=== PATIENT | female | born 1985 | race Caucasian/White ===

== ENCOUNTER 2017-05-14 09:14 | Inpatient (IN) | payer MEDICAID ==
[2017-05-14] MEDS: LACTATED RINGER'S 1,000 ML IV ×3 (11:19→19:50)
[2017-05-14 11:59] LABS: RUPTURE FETAL MEMBRANES POSITIVE (NEGATIVE)
[2017-05-14] MEDS ORDERED: IBUPROFEN 600 MG TAB PO (13:30)
[2017-05-14] MEDS ORDERED: CARBOPROST 250 MCG INJ IM (13:30)
[2017-05-14] MEDS ORDERED: OXYTOCIN 30 UNITS/LR 500 ML IV (13:30)
[2017-05-14] MEDS ORDERED: METHYLERGONOVINE 0.2 MG INJ IM (13:30)
[2017-05-14] MEDS ORDERED: MISOPROSTOL 200 MCG TAB PR (13:30)
[2017-05-14] MEDS ORDERED: LIDOCAINE 1% (MPF) 30 ML INJ INJ (13:30)
[2017-05-14 15:05] LABS: ADD MAN DIFF? NO
[2017-05-14 15:11] LABS: WHITE BLOOD COUNT 9.5 10^3/ul (4.8-10.8)
[2017-05-14 15:11] LABS: BASOPHILS % 0.2 % (0.0-2.0); EOSINOPHILS # 0.1 10^3/ul (0.0-0.5); EOSINOPHILS % 0.5 % (0.0-7.0); HEMATOCRIT 40.1 % (37.0-47.0); HEMOGLOBIN 13.8 g/dl (12.0-16.0); LYMPHOCYTES # 1.6 10^3/ul (0.8-2.9); LYMPHOCYTES % 17.1 % (15.0-51.0); MEAN CORPUSCULAR HEMOGLOBIN 30.7 pg (29.0-33.0); MEAN CORPUSCULAR HGB CONC 34.4 g/dl (32.0-37.0); MEAN CORPUSCULAR VOLUME 89.1 fl (82.0-101.0); MEAN PLATELET VOLUME 11.7 fl (7.4-10.4); MONOCYTE # 0.6 10^3/ul (0.3-0.9); MONOCYTES % 6.3 % (0.0-11.0); NEUTROPHIL # 7.1 10^3/ul (1.6-7.5); NEUTROPHILS % 75.3 % (39.0-77.0); PLATELET COUNT 212 10^3/UL (140-415); RED CELL DISTRIBUTION WIDTH 13.7 % (11.5-14.5)
[2017-05-14 15:35] LABS: INR 0.91; PROTIME 12.3 Sec (11.9-14.9)
[2017-05-14 15:36] LABS: PARTIAL THROMBOPLASTIN TIME 26.8 Sec (25.0-35.0)
[2017-05-14] MEDS: LACTATED RINGER'S 250 ML IV (17:02)
[2017-05-14] MEDS ORDERED: FENTAnyl 2MCG/ML-ROPIV 0.2% 100 ML (20:07)
[2017-05-14 20:29] LABS: HEPATITIS B SURFACE ANTIGEN NEGATIVE (NEGATIVE)
[2017-05-14] MEDS ORDERED: NALOXONE (0.4 MG/ML) INJ IV (21:00)
[2017-05-14] MEDS: OXYTOCIN 30 UNITS/LR 500 ML IV (21:23)
[2017-05-14 22:41] LABS: RAPID PLASMA REAGIN NONREACTIVE (NR)
[2017-05-15] MEDS: LACTATED RINGER'S 1,000 ML IV ×7 (00:43→22:38)
[2017-05-15] MEDS: FENTAnyl 2MCG/ML-ROPIV 0.2% 100 ML BAG EPI ×3 (03:46→17:15)
[2017-05-15] MEDS ORDERED: AMPICILLIN 2 GM/NS (PMX) 100 ML (07:21)
[2017-05-15] MEDS: AMPICILLIN 2 GM/NS (PMX) 100 ML IV (07:24)
[2017-05-15] MEDS: AMPICILLIN 1 GM/NS (PMX) 50 ML IV ×4 (11:11→23:11)
[2017-05-15] MEDS: OXYTOCIN 30 UNITS/LR 500 ML IV (15:43)
[2017-05-16] MEDS: OXYTOCIN 30 UNITS/LR 500 ML IV ×6 (00:30→18:27)
[2017-05-16] MEDS: MINERAL OIL LIGHT 10 ML VIAL TOP ×2 (02:22)
[2017-05-16] MEDS: CEFAZOLIN 2 GM/50 ML (PMX) 50 ML IVPB ×3 (02:30→23:47)
[2017-05-16] MEDS ORDERED: morphine SULFATE/PF (10 MG/10 ML) INJ (02:54)
[2017-05-16] MEDS ORDERED: OXYTOCIN 10 UNIT INJ ×2 (02:54→03:31)
[2017-05-16] MEDS ORDERED: METOCLOPRAMIDE 10 MG INJ (02:54)
[2017-05-16] MEDS ORDERED: OXYTOCIN 30 UNITS/LR 500 ML IV ×2 (02:54→08:00)
[2017-05-16] MEDS ORDERED: EPHEDrine SULFATE 50 MG/5 ML SYG (02:54)
[2017-05-16] MEDS ORDERED: ONDANSETRON 4 MG INJ (02:54)
[2017-05-16] MEDS ORDERED: LIDOCAINE 1.5%/EPI MPF (SDV) 30 ML VIAL (02:55)
[2017-05-16] MEDS: LACTATED RINGER'S 1,000 ML IV ×5 (03:00→22:23)
[2017-05-16] MEDS: AMPICILLIN 1 GM/NS (PMX) 50 ML IV (03:30)
[2017-05-16] MEDS ORDERED: ONDANSETRON 4 MG INJ IV ×2 (06:30→08:00)
[2017-05-16] MEDS ORDERED: DIPHENHYDRAMINE 50 MG INJ IV ×2 (06:30→08:00)
[2017-05-16] MEDS ORDERED: NALOXONE (0.4 MG/ML) INJ IV (06:30)
[2017-05-16] MEDS ORDERED: morphine 2 MG INJ IV ×2 (06:30)
[2017-05-16] MEDS: morphine SULFATE/PF (10 MG/10 ML) INJ EPI (06:33)
[2017-05-16] MEDS: KETOROLAC 30 MG INJ IV ×3 (07:09→18:19)
[2017-05-16] MEDS ORDERED: METHYLERGONOVINE 0.2 MG INJ IM (08:00)
[2017-05-16] MEDS ORDERED: CARBOPROST 250 MCG INJ IM (08:00)
[2017-05-16] MEDS ORDERED: MISOPROSTOL 200 MCG TAB PR (08:00)
[2017-05-16] MEDS ORDERED: OXYCODONE/ACETAMINOPHEN (5/325) TAB PO (08:00)
[2017-05-16] MEDS ORDERED: ZOLPIDEM 5 MG TAB PO (08:00)
[2017-05-16] MEDS ORDERED: LANOLIN 7 GM TUBE TOP (08:00)
[2017-05-16] MEDS: SENNA/DOCUSATE NA (8.6MG/50MG) TAB PO ×2 (09:34→20:40)
[2017-05-16] MEDS: CLINDAMYCIN 300 MG CAP PO ×2 (18:23→23:46)
[2017-05-16] MEDS ORDERED: MAGNESIUM HYDROXIDE 30ML CUP PO (18:30)
[2017-05-16] MEDS ORDERED: SENNA TAB PO (18:30)
[2017-05-17] MEDS: KETOROLAC 30 MG INJ IV (04:30)
[2017-05-17] MEDS: CEFAZOLIN 2 GM/50 ML (PMX) 50 ML IVPB ×2 (05:32→11:51)
[2017-05-17] MEDS: CLINDAMYCIN 300 MG CAP PO ×2 (05:32→11:51)
[2017-05-17] MEDS: IBUPROFEN 600 MG TAB PO ×4 (06:00→23:41)
[2017-05-17] MEDS: OXYCODONE/ACETAMINOPHEN (5/325) TAB PO (09:43)
[2017-05-17] MEDS: SENNA/DOCUSATE NA (8.6MG/50MG) TAB PO ×2 (09:43→21:17)
[2017-05-17 10:19] LABS: ADD MAN DIFF? NO
[2017-05-17 10:22] LABS: WHITE BLOOD COUNT 17.5 10^3/ul (4.8-10.8)
[2017-05-17 10:22] LABS: BASOPHIL # 0.1 10^3/ul (0.0-0.1); BASOPHILS % 0.3 % (0.0-2.0); EOSINOPHILS % 0.2 % (0.0-7.0); HEMATOCRIT 29.5 % (37.0-47.0); HEMOGLOBIN 10.3 g/dl (12.0-16.0); LYMPHOCYTES # 1.1 10^3/ul (0.8-2.9); LYMPHOCYTES % 6.1 % (15.0-51.0); MEAN CORPUSCULAR HEMOGLOBIN 31.4 pg (29.0-33.0); MEAN CORPUSCULAR HGB CONC 34.9 g/dl (32.0-37.0); MEAN CORPUSCULAR VOLUME 89.9 fl (82.0-101.0); MEAN PLATELET VOLUME 11.9 fl (7.4-10.4); MONOCYTE # 0.6 10^3/ul (0.3-0.9); MONOCYTES % 3.2 % (0.0-11.0); NEUTROPHIL # 15.6 10^3/ul (1.6-7.5); NEUTROPHILS % 89.2 % (39.0-77.0); PLATELET COUNT 172 10^3/UL (140-415); RED BLOOD COUNT 3.28 10^6/ul (4.20-5.40); RED CELL DISTRIBUTION WIDTH 13.9 % (11.5-14.5)
[2017-05-17] MEDS: LACTATED RINGER'S 1,000 ML IV ×2 (15:53→18:15)
[2017-05-17] MEDS: GENTAMICIN 80 MG/NS (PMX) 50 ML IVPB (17:30)
[2017-05-17] MEDS: CLINDAMYCIN 900 MG/D5W (PMX) 50 ML IVPB ×3 (18:00→23:41)
[2017-05-17] MEDS: AMPICILLIN 2 GM/NS (PMX) 100 ML IVPB (19:03)
[2017-05-18] MEDS: AMPICILLIN 2 GM/NS (PMX) 100 ML IVPB ×4 (00:17→18:47)
[2017-05-18] MEDS: GENTAMICIN 80 MG/NS (PMX) 50 ML IVPB ×4 (01:21→18:25)
[2017-05-18] MEDS: CLINDAMYCIN 900 MG/D5W (PMX) 50 ML IVPB ×4 (05:17→23:35)
[2017-05-18] MEDS: IBUPROFEN 600 MG TAB PO ×4 (05:48→23:35)
[2017-05-18] MEDS: SENNA/DOCUSATE NA (8.6MG/50MG) TAB PO ×2 (09:35→21:35)
[2017-05-18 11:10] LABS: ADD MAN DIFF? NO
[2017-05-18 11:20] LABS: WHITE BLOOD COUNT 12.7 10^3/ul (4.8-10.8)
[2017-05-18 11:20] LABS: BASOPHILS % 0.3 % (0.0-2.0); EOSINOPHILS # 0.1 10^3/ul (0.0-0.5); EOSINOPHILS % 0.9 % (0.0-7.0); HEMATOCRIT 29.5 % (37.0-47.0); LYMPHOCYTES # 1.2 10^3/ul (0.8-2.9); LYMPHOCYTES % 9.1 % (15.0-51.0); MEAN CORPUSCULAR HEMOGLOBIN 30.8 pg (29.0-33.0); MEAN CORPUSCULAR HGB CONC 33.9 g/dl (32.0-37.0); MEAN CORPUSCULAR VOLUME 90.8 fl (82.0-101.0); MONOCYTE # 0.5 10^3/ul (0.3-0.9); MONOCYTES % 4.1 % (0.0-11.0); NEUTROPHIL # 10.8 10^3/ul (1.6-7.5); NEUTROPHILS % 84.9 % (39.0-77.0); PLATELET COUNT 217 10^3/UL (140-415); RED BLOOD COUNT 3.25 10^6/ul (4.20-5.40); RED CELL DISTRIBUTION WIDTH 13.7 % (11.5-14.5)
[2017-05-18] MEDS: OXYCODONE/ACETAMINOPHEN (5/325) TAB PO (14:00)
[2017-05-18] MEDS ORDERED: MAGNESIUM HYDROXIDE 30ML CUP PO (16:30)
[2017-05-18] MEDS ORDERED: SENNA TAB PO (16:30)
[2017-05-18] MEDS: BISACODYL 10 MG SUPP PR (16:53)
[2017-05-19] MEDS: AMPICILLIN 2 GM/NS (PMX) 100 ML IVPB ×3 (00:12→12:50)
[2017-05-19] MEDS: GENTAMICIN 80 MG/NS (PMX) 50 ML IVPB ×2 (01:22→10:24)
[2017-05-19] MEDS: CLINDAMYCIN 900 MG/D5W (PMX) 50 ML IVPB ×2 (05:43→13:40)
[2017-05-19] MEDS: IBUPROFEN 600 MG TAB PO ×2 (05:43→12:50)
[2017-05-19 08:57] LABS: ADD MAN DIFF? NO
[2017-05-19] MEDS ORDERED: DIPHTH/TET/ACEL PERTUSS (ADULT) 0.5 ML VIAL IM* (09:00)
[2017-05-19 09:02] LABS: BASOPHILS % 0.2 % (0.0-2.0); EOSINOPHILS # 0.1 10^3/ul (0.0-0.5); EOSINOPHILS % 1.3 % (0.0-7.0); HEMATOCRIT 28.1 % (37.0-47.0); HEMOGLOBIN 9.7 g/dl (12.0-16.0); LYMPHOCYTES # 1.4 10^3/ul (0.8-2.9); LYMPHOCYTES % 15.8 % (15.0-51.0); MEAN CORPUSCULAR HEMOGLOBIN 31.2 pg (29.0-33.0); MEAN CORPUSCULAR HGB CONC 34.5 g/dl (32.0-37.0); MEAN CORPUSCULAR VOLUME 90.4 fl (82.0-101.0); MEAN PLATELET VOLUME 11.5 fl (7.4-10.4); MONOCYTE # 0.5 10^3/ul (0.3-0.9); MONOCYTES % 5.6 % (0.0-11.0); NEUTROPHIL # 6.9 10^3/ul (1.6-7.5); NEUTROPHILS % 76.5 % (39.0-77.0); PLATELET COUNT 243 10^3/UL (140-415); RED BLOOD COUNT 3.11 10^6/ul (4.20-5.40); RED CELL DISTRIBUTION WIDTH 13.5 % (11.5-14.5)
[2017-05-19] MEDS: SENNA/DOCUSATE NA (8.6MG/50MG) TAB PO (10:23)
== END 2017-05-19 16:47 | disposition home or self-care (01) | DRG 766 ==
LOC: OBT 09:14 → L-D 09:14 → PP1 05-16 10:12 → OBT 13:00 → L-D 13:11
PROVIDERS: Obstetrics & Gynecology
PROC: 10D00Z1 Extraction of Products of Conception, Low, Open Approach (ICD-10-PCS; principal; 2017-05-16)
PROC: 3E033VJ Introduction of Other Hormone into Peripheral Vein, Percutaneous Approach (ICD-10-PCS; 2017-05-16)
DX: O34.13 Maternal care for benign tumor of corpus uteri, third trimester (principal); O62.0 Primary inadequate contractions; Z3A.38 38 weeks gestation of pregnancy; Z37.0 Single live birth
CPT/HCPCS: 62319; 76815; 76818; 84112; 85025; 85610; 85730; 86592; 86900; 86901; 87086; 87340; 94760; 96360; 96361; 99464

== ENCOUNTER 2017-05-30 10:52 | Emergency (ER) | payer MEDICAID | END 2017-05-30 11:33 | disposition home or self-care (01) | LOC: FTE 10:52 → E/R 11:33 | DX: O90.0 Disruption of cesarean delivery wound (principal) | CPT/HCPCS: 99283; Z7502 ==

== ENCOUNTER 2017-06-01 10:46 | Emergency (ER) | payer MEDICAID ==
[2017-06-01] MEDS: SOD CHLORIDE 0.9% 1,000 ML IV (11:27)
[2017-06-01 11:53] LABS: ADD MAN DIFF? NO
[2017-06-01 11:59] LABS: ADD UMIC YES; UR ASCORBIC ACID NEGATIVE (NEGATIVE); UR BACTERIA FEW /HPF (NONE SEEN); UR BILIRUBIN (Dip) NEGATIVE (NEGATIVE); UR BLOOD (Dip) 1+ mg/dL (NEGATIVE); UR CLARITY CLEAR (CLEAR); UR COLOR STRAW (YELLOW); UR GLUCOSE (Dip) NEGATIVE (NEGATIVE); UR KETONES (Dip) NEGATIVE (NEGATIVE); UR LEUKOCYTE ESTERASE (Dip) 2+ Leu/ul (NEGATIVE); UR NITRITE (Dip) NEGATIVE (NEGATIVE); UR RBC 1 /HPF (0-5); UR SPECIFIC GRAVITY (Dip) 1.004 (1.003-1.030); UR SQUAMOUS EPITHELIAL CELL FEW /HPF (FEW); UR TOTAL PROTEIN (Dip) NEGATIVE (NEGATIVE); UR UROBILINOGEN (Dip) NEGATIVE (NEGATIVE); UR WBC 36 /HPF (0-5)
[2017-06-01 12:00] LABS: WHITE BLOOD COUNT 5.4 10^3/ul (4.8-10.8)
[2017-06-01 12:01] LABS: BASOPHIL # 0.1 10^3/ul (0.0-0.1); BASOPHILS % 0.9 % (0.0-2.0); EOSINOPHILS # 0.1 10^3/ul (0.0-0.5); HEMATOCRIT 40.7 % (37.0-47.0); HEMOGLOBIN 13.4 g/dl (12.0-16.0); LYMPHOCYTES # 1.9 10^3/ul (0.8-2.9); LYMPHOCYTES % 35.1 % (15.0-51.0); MEAN CORPUSCULAR HGB CONC 32.9 g/dl (32.0-37.0); MEAN CORPUSCULAR VOLUME 91.3 fl (82.0-101.0); MONOCYTE # 0.4 10^3/ul (0.3-0.9); MONOCYTES % 6.7 % (0.0-11.0); NEUTROPHILS % 54.9 % (39.0-77.0); PLATELET COUNT 556 10^3/UL (140-415); RED BLOOD COUNT 4.46 10^6/ul (4.20-5.40); RED CELL DISTRIBUTION WIDTH 12.9 % (11.5-14.5)
[2017-06-01 12:16] LABS: ALANINE AMINOTRANSFERASE 35 IU/L (13-69); ALBUMIN 4.2 g/dl (3.3-4.9); ALBUMIN/GLOBULIN RATIO 1.05; ALKALINE PHOSPHATASE 133 IU/L (42-121); ANION GAP 17 (8-16); ASPARTATE AMINO TRANSFERASE 32 IU/L (15-46); BILIRUBIN,INDIRECT 0.1 mg/dl (0-1.1); BILIRUBIN,TOTAL 0.1 mg/dl (0.2-1.3); BLOOD UREA NITROGEN 13 mg/dl (7-20); CALCIUM 9.7 mg/dl (8.4-10.2); CARBON DIOXIDE 27 mmol/L (21-31); CHLORIDE 107 mmol/L (97-110); GLUCOSE 62 mg/dl (70-220); LIPASE 211 U/L (23-300); POTASSIUM 3.8 mmol/L (3.5-5.1); SODIUM 147 mmol/L (135-144); TOTAL PROTEIN 8.2 g/dl (6.1-8.1)
[2017-06-01] MEDS: SOD CHLORIDE 0.9% 100 ML (12:42)
[2017-06-01] MEDS: IOHEXOL 300MG/ML 150 ML BTL (12:42)
== END 2017-06-01 13:35 | disposition home or self-care (01) ==
LOC: FTE 10:46
DX: O86.20 Urinary tract infection following delivery, unspecified (principal); R10.9 Unspecified abdominal pain; B96.89 Other specified bacterial agents as the cause of diseases classified elsewhere
CPT/HCPCS: 36415; 74177; 80053; 81001; 83690; 85025; 99285-25